=== PATIENT | male | born 1975 | race Caucasian/White ===

== ENCOUNTER 2020-07-24 16:32 | Emergency (ER) | payer SELFPAY ==
[~2020-07-24] VITALS: Ht 175.3 cm; Wt 81.0 kg
[2020-07-24] MEDS ORDERED: MVI, ADULT NO.4 WITH VIT K 10 ML, FOLIC ACID INJ 1 MG, THIAMINE INJ 100 MG in IV RINGER... IV ONE (17:45)
[2020-07-24 18:12] LABS: BASO # 0.1 x10^3/uL (0.0-0.2); BASO % 1 % (0-3); EOS # 0.3 x10^3/uL (0.0-0.7); EOS % 2 % (0-3); HEMATOCRIT 32.5 % (39.0-53.0); HEMOGLOBIN 10.2 g/dL (13.0-17.5); LYMPH # 2.2 x10^3/uL (1.0-4.8); LYMPH % 17 % (24-48); MEAN CORPUSCULAR HEMOGLOBIN 21 pg (25-35); MEAN CORPUSCULAR HGB CONC 32 g/dL (31-37); MEAN CORPUSCULAR VOLUME 66 fL (79-100); MONO % 8 % (0-9); NEUT # 9.3 x10^3uL (1.8-7.7); NEUT % 73 % (31-73); PLATELET COUNT 157 x10^3/uL (140-400); RED BLOOD COUNT 4.89 x10^6/uL (4.30-5.70); RED CELL DISTRIBUTION WIDTH 18.7 % (11.5-14.5); WHITE BLOOD COUNT 12.9 x10^3/uL (4.0-11.0)
[2020-07-24 18:16] LABS: ALBUMIN 4.1 g/dL (3.4-5.0); ALBUMIN/GLOBULIN RATIO 1.3 (1.0-1.7); CALCIUM 8.4 mg/dL (8.5-10.1); CREATININE 0.9 mg/dL (0.7-1.3); GFR 91.7; TOTAL BILIRUBIN 4.3 mg/dL (0.2-1.0); TOTAL PROTEIN 7.3 g/dL (6.4-8.2)
[2020-07-24 18:21] LABS: POTASSIUM 2.9 mmol/L (3.5-5.1)
[2020-07-24 18:42] LABS: HYPOCHROMIA MARKED; PLT ESTIMATE DECREASED (ADEQUATE)
[2020-07-24 18:43] LABS: ANISOCYTOSIS MOD; MICROCYTOSIS SLIGHT
[2020-07-24] MEDS ORDERED: IV NORMAL SALINE 1,000ML 1,000 ML IV ONE (19:00)
[2020-07-24] MEDS ORDERED: POTASSIUM CHLORIDE 20 MEQ TABLET.ER. PO ONE (19:00)
[2020-07-24 19:32] LABS: BARBITURATES POS (NEG); BENZODIAZEPINES POS (NEG); CANNABINOIDS NEG (NEG); COCAINE NEG (NEG); METHADONE NEG (NEG); OPIATES NEG (NEG); PHENCYCLIDINE NEG (NEG)
[2020-07-24 19:34] LABS: AMPHETAMINE/METHAMPHETAMINE NEG (NEG)
[2020-07-24 19:36] LABS: BILIRUBIN,URINE MOD (NEG); CLARITY,URINE CLEAR; COLOR,URINE YELLOW; GLUCOSE,URINE NEG (NEG)
[2020-07-24 19:37] LABS: BACTERIA,URINE 0 /HPF (0-FEW); NITRITE,URINE NEG (NEG); RBC,URINE >40 /HPF (0-2); SQUAMOUS EPITHELIAL CELL,UR OCC /LPF; WBC,URINE 0 /HPF (0-4)
--- NOTE | 2020-07-24 19:45 | PHYS DOC ---
Past History Past Medical History: Alcoholism, Hypertension, Other Additional Past Medical Histor: seasonal allergies Past Surgical History: No Surgical History, Other Additional Past Surgical Histo: skin graft, ORIF to jaw. Additional Smoking Information: Chewing tobacco Alcohol Use: Heavy Additional Alcohol Information: Drinks 1-3 fifths of vodka 4 days a week. Adult General Chief Complaint Chief Complaint: WITHDRAWAL HPI HPI Patient is a 45-year-old male who presents emergency department wanting alcohol rehab. Patient states that he is a daily drinker of vodka, reports drinking in between 1/5 and 1 L of vodka every day. Patient states she goes through periods of abstinence from alcohol, patient states that he feels like he needs help to stop drinking. Patient reports his last drink was last night, stating he drank a liter of vodka. Patient states she has had no drinking of alcohol today. Patient states that he just wants help to stop drinking. Patient denies smoking cigarettes, denies illicit drug use. Patient denies any chest pain, shortness of breath, visual changes. Patient denies homicidal or suicidal ideations. Patient denies any visual auditory hallucinations. Patient denies any other physical complaints or physical concerns. Review of Systems Review of Systems 14 body systems of review of systems have been reviewed. See HPI for pertinent positives and negative responses, otherwise all other systems are negative, nonpertinent or noncontributory. Current Medications Current Medications Current Medications Medications (Trade) Dose Ordered Sig/Rachelle Start Time Stop Time Status Last Admin Dose Admin Lorazepam (Ativan Inj) 1 mg 1X ONCE 07/24/20 17:45 07/24/20 18:03 DC 07/24/20 18:38 1 MG Multivitamins/ Minerals 10 ml/ Folic Acid 1 mg/ Thiamine HCl 100 mg/Lactated Ringer's 1,011.3 ml @ 1,011.3 mls/hr 1X ONCE 07/24/20 17:45 07/24/20 18:44 DC 07/24/20 17:45 1,011.3 MLS/HR Potassium Chloride (Klor-Con) 40 meq 1X ONCE 07/24/20 19:00 07/24/20 19:03 DC 07/24/20 19:12 40 MEQ Sodium Chloride 1,000 ml @ 1,000 mls/hr 1X ONCE 07/24/20 19:00 07/24/20 19:59 07/24/20 19:15 1,000 MLS/HR Allergies Allergies Allergies Coded Allergies Type Severity Reaction Last Updated Verified No Known Drug Allergies 07/24/20 No Physical Exam Physical Exam Constitutional: Well developed, well nourished, no acute distress, non-toxic appearance. 45-year-old male in no apparent distress. HENT: Normocephalic, atraumatic, bilateral external ears normal, oropharynx moist, no oral exudates, nose normal. Oropharynx moist, pink, no infectious process appreciated, no lymphadenopathy of the head or neck. Eyes: PERRLA, EOMI, conjunctiva normal, no discharge. Neck: Normal range of motion, no tenderness, supple, no stridor. No midline spinal tenderness, no nuchal rigidity. Cardiovascular:Heart rate regular rhythm, no murmur, heart sounds S1-S2 to auscultation Lungs & Thorax: Bilateral breath sounds clear to auscultation all lung kay, no adventitious lung sounds appreciated. Abdomen: Bowel sounds normal, soft, no tenderness, no masses, no pulsatile masses. Skin: Warm, dry, no erythema, no rash. Back: No tenderness, no CVA tenderness. Extremities: No tenderness, no cyanosis, no clubbing, ROM intact, no edema. Neurologic: Alert and oriented X 3, normal motor function, normal sensory function, no focal deficits noted. Psychologic: Affect normal, judgement normal, mood normal. Current Patient Data Vital Signs Vital Signs Date Time Temp Pulse Resp B/P (MAP) Pulse Ox O2 Delivery O2 Flow Rate FiO2 07/24/20 16:51 98.5 98 18 137/93 (108) 100 Lab Results Laboratory Tests Test 07/24/20 17:40 White Blood Count 12.9 x10^3/uL (4.0-11.0) H Red Blood Count 4.89 x10^6/uL (4.30-5.70) Hemoglobin 10.2 g/dL (13.0-17.5) L Hematocrit 32.5 % (39.0-53.0) L Mean Corpuscular Volume 66 fL (79-100) L Mean Corpuscular Hemoglobin 21 pg (25-35) L Mean Corpuscular Hemoglobin Concent 32 g/dL (31-37) Red Cell Distribution Width 18.7 % (11.5-14.5) H Platelet Count 157 x10^3/uL (140-400) Neutrophils (%) (Auto) 73 % (31-73) Lymphocytes (%) (Auto) 17 % (24-48) L Monocytes (%) (Auto) 8 % (0-9) Eosinophils (%) (Auto) 2 % (0-3) Basophils (%) (Auto) 1 % (0-3) Neutrophils # (Auto) 9.3 x10^3uL (1.8-7.7) H Lymphocytes # (Auto) 2.2 x10^3/uL (1.0-4.8) Monocytes # (Auto) 1.0 x10^3/uL (0.0-1.1) Eosinophils # (Auto) 0.3 x10^3/uL (0.0-0.7) Basophils # (Auto) 0.1 x10^3/uL (0.0-0.2) Platelet Estimate Decreased (ADEQUATE) Hypochromasia Marked Anisocytosis Mod Microcytosis Slight Sodium Level 131 mmol/L (136-145) L Potassium Level 2.9 mmol/L (3.5-5.1) *L Chloride Level 92 mmol/L (98-107) L Carbon Dioxide Level 17 mmol/L (21-32) L Anion Gap 22 (6-14) H Blood Urea Nitrogen 24 mg/dL (8-26) Creatinine 0.9 mg/dL (0.7-1.3) Estimated GFR (Cockcroft-Gault) 91.7 BUN/Creatinine Ratio 27 (6-20) H Glucose Level 64 mg/dL (70-99) L Calcium Level 8.4 mg/dL (8.5-10.1) L Total Bilirubin 4.3 mg/dL (0.2-1.0) H Aspartate Amino Transferase (AST) 183 U/L (15-37) H Alanine Aminotransferase (ALT) 171 U/L (16-63) H Alkaline Phosphatase 58 U/L (46-116) Total Protein 7.3 g/dL (6.4-8.2) Albumin 4.1 g/dL (3.4-5.0) Albumin/Globulin Ratio 1.3 (1.0-1.7) Ethyl Alcohol Level < 10 mg/dL (0-10) EKG EKG [] Radiology/Procedures Radiology/Procedures [] Heart Score C/O Chest Pain: No Risk Factors: Risk Factors: DM, Current or recent (<one month) smoker, HTN, HLP, family history of CAD, obesity. Risk Scores: Risk Factors: DM, Current or recent (<one month) smoker, HTN, HLP, family history of CAD, obesity. Course & Med Decision Making Course & Med Decision Making Pertinent Labs and Imaging studies reviewed. (See chart for details) 45-year-old male, vital signs reviewed, presents emergency department requesting alcohol withdrawal assistance. Physical examination unremarkable. Will draw labs, start IV, consult with PAT team for evaluation of alcohol treatment placement. PAT forensics team director Alyssa at bedside to interview patient. Patient's potassium 2.9. Will give 40 mEq p.o. potassium, awaiting decision from PAT forensics team director Alyssa. Discussed patient case with PAT forensics team director Alyssa, states he recommends patient follow-up with outpatient alcohol rehabilitation, patient has been given information by PAT forensics team director Alyssa to follow-up with alcohol rehabilitation center. Reevaluation of the patient found patient remains alert and oriented, patient gave verbal understanding of alcohol rehabilitation for stopping drinking. Patient gave verbal understanding of discharge home instructions, follow-up with alcohol rehab center, follow-up with primary care soon, return to ER precautions and concerns, patient was discharged home without incident. Daisyon Disclaimer Doreen Disclaimer This electronic medical record was generated, in whole or in part, using a voice recognition dictation system. Departure Departure: Impression: Primary Impression: Alcoholism Additional Impression: Hypokalemia Disposition: 01 HOME / SELF CARE / HOMELESS Condition: GOOD Referrals: PCP,NO (PCP) [facility] Patient Instructions: Alcohol Problems Additional Instructions: Your evaluated today in the emergency department for your alcoholism. You have requested help with finding a alcohol rehab center. You have spoke at length with our PAT forensics team director Alyssa who has given you information to follow-up with a n outpatient alcohol rehab center. I encourage you to follow-up with them soon. Please see your primary care doctor this week for ongoing problems, if you are unable to secure an appointment with your primary care doctor I have given you a recommendation to see MURIEL Raymond. Please return to the emergency department for worsening symptoms or other concerns. We have discussed your low potassium, please eat foods rich in potassium or supplement with a [id number] diet supplement tablet. EMERGENCY DEPARTMENT GENERAL DISCHARGE INSTRUCTIONS Thank you for coming to [facility] ([facility]) today and trusting us with you care. We trust that you had a positivie experience in our Emergency Department. If you wish to speak to the department management, you may call the director at [phone]. YOUR FOLLOW UP INSTRUCTIONS ARE FOLLOWS: 1. Do you have a private Doctor? If you do not have a private doctor, please ask for a resource list of physicians or clinics that may be able to assist you with follow up care. 2. The Emergency Physician has interpreted your x-rays. The X-Ray specialist will also review them. If there is a change in the findings, you will be notified in 48 hours when at all possible. 3. A lab test or culture has been done, your results will be reviewed and you will be notified if you need a change in treatment. ADDITIONAL INSTRUCTIONS AND INFORMATION: 1. Your care today has been supervised by a physician who is specially trained in emergency care. Many problems require more than one evaluation for a complete diagnosis and treatment. We recommend that you schedule your follow up appointment as recommended to ensure complete treatment of you illness or injury. If you are unable to obtain follow up care and continue to have a problem, or if your condition worsens, we recommend that you return to the ED. 2. We are not able to safely determine your condition over the phone nor are we able to give sound medical advice over the phone. For these safety reasons, if you call for medical advice we will ask you to come to the ED for further evaluation. 3. If you have any questions regarding these discharge instructions please call the ED at [phone]. SAFETY INFORMATION: In the interest of safety, wellness, and injury prevention; we encourage you to wear your sealbelt, if you smoke; quite smoking, and we encourage family to use a protective helmet for bicycling and other sporting events that present an increased risk for head injury. IF YOUR SYMPTOMS WORSEN OR NEW SYMPTOMS DEVELOP, OR YOU HAVE CONCERNS ABOUT YOUR CONDITION; OR IF YOUR CONDITION WORSENS WHILE YOU ARE WAITING FOR YOUR FOLLOW UP APPOINTMENT; EITHER CONTACT YOUR PRIMARY CARE DOCTOR, THE PHYSICIAN WHOSE NAME AND NUMBER YOU WERE GIVEN, OR RETURN TO THE ED IMMEDIATELY. Problem Qualifiers ROLANDO CABALLERO APRN Jul 24, 2020 19:45
[2020-07-24 20:18] VITALS: BP 102/60
== END 2020-07-24 20:28 | disposition home or self-care (01) ==
LOC: ER 16:32
DX: F10.20 Alcohol dependence, uncomplicated (principal); Y90.0 Blood alcohol level of less than 20 mg/100 ml; E87.6 Hypokalemia; I10 Essential (primary) hypertension; F17.220 Nicotine dependence, chewing tobacco, uncomplicated
CPT/HCPCS: 36415; 80053; 80307; 81001; 85025; 96361; 96365; 96375; 99285; G0480; J2060; J7030; J7120